=== PATIENT | female | born 1980 | race Caucasian/White ===

== ENCOUNTER 2017-09-21 13:11 | Emergency (ER) | payer OTHER ==
[2017-09-21] MEDS ORDERED: Ketorolac 60 MG/2 ML SDV IM ONE (13:59)
[2017-09-21] MEDS ORDERED: Acetaminophen/HYDROcodone 325-7.5 MG Tab PO ONE (13:59)
--- NOTE | 2017-09-21 13:59 | EDM.PDOC ---
ED HPI GENERAL MEDICAL PROBLEM - General Chief Complaint: Lower Extremity Injury/Pain Stated Complaint: RIGHT FOOT PAIN Time Seen by Provider: 09/21/17 13:51 - History of Present Illness INITIAL COMMENTS - FREE TEXT/NARRATIVE: HISTORY AND PHYSICAL: History of present illness: The patient is a 37-year-old female who presents with complaints of pain to her posterior right calf after she stepped off a curb and planted her foot and felt an immediate pop. She did not fall to the ground hitting her head or pass out and has no bony knee or leg pain no bony ankle or foot pain and no proximal hip pain. She says that the pain is exquisitely in the calf and that she has difficulty moving her foot up or down without severe discomfort. Neurovascular is intact. She did not take anything for the pain prior to coming here. Prior to events she was in her usual state of good health with no systemic complaints. She has a history of a bilateral tubal ligation Review of systems: As per history of present illness and below otherwise all systems reviewed and negative. Past medical history: As per history of present illness and as reviewed below otherwise noncontributory. Surgical history: As per history of present illness and as reviewed below otherwise noncontributory. Social history: No reported history of drug or alcohol abuse. Family history: As per history of present illness and as reviewed below otherwise noncontributory. Physical exam: General: Well-developed well-nourished female who is nontoxic and vital signs reviewed by me HEENT: Atraumatic, normocephalic, negative for conjunctival pallor or scleral icterus, mucous membranes moist, throat clear, neck supple, nontender, trachea midline. Lungs: Clear to auscultation, breath sounds equal bilaterally, chest nontender. Heart: S1S2, regular rate and rhythm no overt murmurs Abdomen: Soft, nondistended, nontender. NABS Pelvis: Stable nontender. Lateral hip tenderness Genitourinary: Deferred. Rectal: Deferred. Extremities: Atraumatic bony standpoint throughout the lower extremities including the right knee right tib-fib right ankle and right foot. On palpation the Achilles tendon is diminished in character but it is still palpable and the calf is mildly swollen and tender to palpation, there is no popliteal fossa tenderness. The patient can dorsi and plantar flex very minimally and with passive range of motion she is unable to tolerate much as she says it is very painful. The legs are, negative for cords Neurovascular unremarkable. Neuro: Awake, alert, oriented. Cranial nerves II through XII unremarkable. Cerebellum unremarkable. Motor and sensory unremarkable throughout. Exam nonfocal. Diagnostics: X-ray right tib-fib and ankle Therapeutics: Toradol Edmond cam boot and crutches 1458: Case was discussed with Dr. Medina in our orthopedic surgeon and he requests crutches a cam boot and he will see the patient tomorrow in his clinic. We have connected with the clinic and got her an appointment tomorrow at 3:30 PM for further care and evaluation. Patient and family at bedside are aware of my concerns about a partial Achilles or soleus injury. Impression: Right calf injury/Achilles injury Definitive disposition and diagnosis as appropriate pending reevaluation and review of above. Right Lower Posterior Leg Pain Score (Numeric/FACES): 8 - Related Data Allergies Allergy/AdvReac Type Severity Reaction Status Date / Time codeine Allergy Hives Verified 09/21/17 13:51 Home Meds: Home Meds Albuterol [Ventolin HFA] 2 puff PO QID 09/21/17 [History] Review of Systems - Review of Systems Review Of Systems: ROS reveals no pertinent complaints other than HPI. ED EXAM, GENERAL - Physical Exam Exam: See Below (See dictation) Course - Vital Signs Last Recorded V/S: Last Vital Signs Temp 36.9 C 09/21/17 13:46 Pulse 84 09/21/17 13:46 Resp 16 09/21/17 13:46 BP 120/76 09/21/17 13:46 Pulse Ox 98 09/21/17 13:46 - Orders/Labs/Meds Orders: Active Orders 24 hr Category Date Time Status DME for Discharge [COMM] Stat Oth 09/21/17 15:31 Ordered Meds: Medications Discontinued Medications Generic Name Dose Route Start Last Admin Trade Name Freq PRN Reason Stop Dose Admin Hydrocodone Bitart/Acetaminophen 1 tab 09/21/17 13:59 09/21/17 14:31 Edmond 325-7.5 Mg PO 09/21/17 14:00 1 tab ONETIME ONE Administration Ketorolac Tromethamine 60 mg 09/21/17 13:59 09/21/17 14:32 Toradol IM 09/21/17 14:00 60 mg ONETIME ONE Administration Departure - Departure Time of Disposition: 15:32 Disposition: Home, Self-Care 01 Condition: Good Clinical Impression: Injury of calf Achilles tendon injury Qualifiers: Encounter type: initial encounter Laterality: right Qualified Code(s): S86.001A - Unspecified injury of right Achilles tendon, initial encounter - Discharge Information Referrals: Ceferino Medina MD [Physician] - 09/22/17 3:30 pm (Please bring insurance and ID cards and arrive to appointment 15 minutes early) PCP,None [Primary Care Provider] - Forms: ED Department Discharge Additional Instructions: The following information is given to patients seen in the emergency department who are being discharged to home. This information is to outline your options for follow-up care. We provide all patients seen in our emergency department with a follow-up referral. The need for follow-up, as well as the timing and circumstances, are variable depending upon the specifics of your emergency department visit. If you don't have a primary care physician on staff, we will provide you with a referral. We always advise you to contact your personal physician following an emergency department visit to inform them of the circumstance of the visit and for follow-up with them and/or the need for any referrals to a consulting specialist. The emergency department will also refer you to a specialist when appropriate. This referral assures that you have the opportunity for followup care with a specialist. All of these measure are taken in an effort to provide you with optimal care, which includes your followup. Under all circumstances we always encourage you to contact your private physician who remains a resource for coordinating your care. When calling for followup care, please make the office aware that this follow-up is from your recent emergency room visit. If for any reason you are refused follow-up, please contact the [facility] emergency department at and ask to speak to the emergency department charge nurse. [facility]--Orthopedic clinic Professional Building [address] [place] [id number] Ice and elevate the area as much as possible and wear the boot and use crutches at all times. Do not weight-bear on the leg. Please loosen or remove the cam boot at sleep times. Use [id number] Aleve/ibuprofen and/or Tylenol for pain and and the stronger pain medications as needed and as prescribed. You have an appointment tomorrow in the orthopedics clinic at 3:[address] Medina for further care and evaluation as we discussed. Return to ER as needed and as discussed - My Orders Last 24 Hours: My Active Orders 09/21/17 15:31 DME for Discharge [COMM] Stat - Assessment/Plan Last 24 Hours: My Active Orders 09/21/17 15:31 DME for Discharge [COMM] Stat
--- NOTE | 2017-09-21 14:32 | CR ---
Left ankle. Clinical history: Pain and trauma Comparison: None. Findings: The mortise is intact. There is no fracture or other focal abnormality seen. Impression: No acute abnormal finding
--- NOTE | 2017-09-21 14:32 | CR ---
Left tibia and fibula Clinical history: Pain and trauma. Findings: The bones are normally mineralized. The metadiaphyseal portion of the tibia and fibula are normal from knee to ankle. Impression: Normal tibia and fibula
== END 2017-09-21 15:55 | disposition home or self-care (01) ==
LOC: MW.ED 13:11
DX: S86.001A Unspecified injury of right Achilles tendon, initial encounter (principal); Z88.5 Allergy status to narcotic agent
CPT/HCPCS: 73590; 73600; 96372; 99283; A9270; J1885

== ENCOUNTER 2017-11-07 23:27 | Emergency (ER) | payer OTHER ==
[2017-11-07] MEDS ORDERED: Ondansetron 4 MG Tab.DIS PO ONE (23:40)
[2017-11-07] MEDS ORDERED: LORazepam 1 MG Tab PO ONE (23:40)
--- NOTE | 2017-11-07 23:44 | EDM.PDOC ---
ED HPI GENERAL MEDICAL PROBLEM - General Chief Complaint: General Stated Complaint: UNK Time Seen by Provider: 11/07/17 23:36 - History of Present Illness INITIAL COMMENTS - FREE TEXT/NARRATIVE: HISTORY AND PHYSICAL: History of present illness: The patient is a healthy 37-year-old female who is here due to overwhelming grief and intractable crying along with some nausea after she found her boyfriend who killed himself with a self-inflicted gunshot wound. Patient says she is just overwhelmed and can't stop crying and feels very anxious. She's had nausea but no vomiting here in the ED but said she vomited at the scene. Patient otherwise has no complaints and has a history of a bilateral tubal ligation. Review of systems: As per history of present illness and below otherwise all systems reviewed and negative. Past medical history: As per history of present illness and as reviewed below otherwise noncontributory. Surgical history: As per history of present illness and as reviewed below otherwise noncontributory. Social history: No reported history of drug or alcohol abuse. Family history: As per history of present illness and as reviewed below otherwise noncontributory. Physical exam: General: Well-developed well-nourished female who is nontoxic and vital signs are noted by me. She is crying but is able to answer questions. HEENT: Atraumatic, normocephalic, pupils reactive, sclera are injected, negative for conjunctival pallor or scleral icterus, mucous membranes moist, throat clear, neck supple, nontender, trachea midline. Lungs: Clear to auscultation, breath sounds equal bilaterally, chest nontender. Heart: S1S2, regular in rhythm no overt murmurs Abdomen: Soft, nondistended, nontender. NABS Pelvis: Deferred Genitourinary: Deferred. Rectal: Deferred. Extremities: Atraumatic, full range of motion without defects or deficits. Neurovascular unremarkable. Neuro: Awake, alert, oriented. Cranial nerves II through XII unremarkable. Cerebellum unremarkable. Motor and sensory unremarkable throughout. Exam nonfocal. Diagnostics: [] Therapeutics: Zofran ODT and Ativan by mouth Impression: Sadness and anxiety, grief reaction Definitive disposition and diagnosis as appropriate pending reevaluation and review of above. 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 ED EXAM, GENERAL - Physical Exam Exam: See Below (see dictation) Course - Vital Signs Last Recorded V/S: Last Vital Signs Temp 36.9 C 11/07/17 23:32 Pulse 108 H 11/07/17 23:32 Resp 24 H 11/07/17 23:32 BP 122/93 H 11/07/17 23:32 Pulse Ox 98 11/07/17 23:32 - Orders/Labs/Meds Orders: Active Orders 24 hr Category Date Time Status LORazepam [Ativan] Med 11/07/17 23:40 Once 1 mg PO ONETIME ONE Ondansetron [Zofran ODT] Med 11/07/17 23:40 Once 4 mg PO ONETIME ONE Departure - Departure Time of Disposition: 23:43 Disposition: Home, Self-Care 01 Condition: Good Clinical Impression: Grief reaction - Discharge Information Referrals: PCP,None [Primary Care Provider] - Additional Instructions: The following information is given to patients seen in the emergency department who are being discharged to home. This information is to outline your options for follow-up care. We provide all patients seen in our emergency department with a follow-up referral. The need for follow-up, as well as the timing and circumstances, are variable depending upon the specifics of your emergency department visit. If you don't have a primary care physician on staff, we will provide you with a referral. We always advise you to contact your personal physician following an emergency department visit to inform them of the circumstance of the visit and for follow-up with them and/or the need for any referrals to a consulting specialist. The emergency department will also refer you to a specialist when appropriate. This referral assures that you have the opportunity for followup care with a specialist. All of these measure are taken in an effort to provide you with optimal care, which includes your followup. Under all circumstances we always encourage you to contact your private physician who remains a resource for coordinating your care. When calling for followup care, please make the office aware that this follow-up is from your recent emergency room visit. If for any reason you are refused follow-up, please contact the [facility] emergency department at and ask to speak to the emergency department charge nurse. [facility] Primary care- Internal Medicine and Family [facility] [address] Push sips of hydration and try to get sleep and follow-up with one of our clinic providers in the next few days. Return to ER as needed and as discussed - My Orders Last 24 Hours: My Active Orders 11/07/17 23:40 LORazepam [Ativan] 1 mg PO ONETIME ONE Ondansetron [Zofran ODT] 4 mg PO ONETIME ONE - Assessment/Plan Last 24 Hours: My Active Orders 11/07/17 23:40 LORazepam [Ativan] 1 mg PO ONETIME ONE Ondansetron [Zofran ODT] 4 mg PO ONETIME ONE
== END 2017-11-08 | disposition home or self-care (01) ==
LOC: MW.ED 23:27
DX: F43.22 Adjustment disorder with anxiety (principal); Z88.5 Allergy status to narcotic agent; Z91.040 Latex allergy status; F17.210 Nicotine dependence, cigarettes, uncomplicated
CPT/HCPCS: 99283; A9270